=== PATIENT | female | born 2000 | race Caucasian/White ===

== ENCOUNTER 2022-02-10 02:00 | Emergency (ER) | payer OTHER ==
[~2022-02-10] VITALS: Ht 149.9 cm; Wt 55.8 kg
[2022-02-10 02:03] VITALS: BP 121/66
--- NOTE | 2022-02-10 03:12 | NUR ---
21 Y/O FEMALE BIBS, C/O ABD PAIN RADIATING TO BACK X1 DAY. PT STATES SHE HAS HAD CHILLS AND BURNING DURING URINATION. DENIES N/V/D; NO BLOOD IN URINE; SKIN IS PINK/WARM/DRY; AAOX4 WITH EVEN AND STEADY GAIT; LUNGS CLEAR BL; HR EVEN AND REGULAR; PT DENIES ANY FEVER, CP, SOB, OR COUGH AT THIS TIME; PATIENT STATES PAIN OF 5/10 AT THIS TIME; VSS denies hx, allergies meds: concerta, control
--- NOTE | 2022-02-10 03:44 | NUR ---
PT TAKEN TO ER BED 12
[2022-02-10] MEDS ORDERED: ONDANSETRON 4 MG/2 ML VIAL IVP ONE (03:45)
[2022-02-10] MEDS ORDERED: KETOROLAC 15 MG/ML VIAL IVP ONE (04:05)
[2022-02-10 04:11] LABS: APPEARANCE,URINE CLEAR (CLEAR); BILIRUBIN,URINE NEGATIVE (NEGATIVE); BLOOD, URINE 2+ (NEGATIVE); COLOR,URINE YELLOW (YELLOW); LEUKOCYTE ESTERASE ,URINE 2+ (NEGATIVE); NITRITE, URINE NEGATIVE (NEGATIVE); UGLUCOSE NEGATIVE (NEGATIVE)
[2022-02-10] MEDS ORDERED: cefTRIAXone 1,000 MG VIAL ONE (04:14)
[2022-02-10 04:17] LABS: BASOPHILS % (AUTO) 0.4 % (0.0-2.0); EOSINOPHILS # (AUTO) 0.2 K/uL (0-0.4); EOSINOPHILS % (AUTO) 1.2 % (0.0-4.0); HEMATOCRIT 38.4 % (36-48); LYMPHOCYTES # (AUTO) 2.1 K/uL (2.5-16.5); LYMPHOCYTES % (AUTO) 16.2 % (20.5-51.1); MEAN CORPUSCULAR HEMOGLOBIN 29 pg (27-31); MEAN CORPUSCULAR HGB CONC 34 g/dL (33-37); MEAN CORPUSCULAR VOLUME 86.1 fL (80-94); MONOCYTES # (AUTO) 0.6 K/uL (0.8-1.0); MONOCYTES % (AUTO) 4.9 % (1.7-9.3); NEUTROPHILS # (AUTO) 10.1 K/uL (1.8-7.7); NEUTROPHILS % (AUTO) 77.3 % (42.2-75.2); PLATELET COUNT (AUTO) 306 K/uL (140-450); RED BLOOD CELL COUNT(AUTO) 4.47 MIL/uL (4.20-5.40); RED CELL DISTRIBUTION WIDTH 12.6 % (11.6-13.7)
[2022-02-10] MEDS: NACL 0.9% 1,000 ML IV SCH ×2 (04:20→08:39)
--- NOTE | 2022-02-10 04:35 | NUR ---
20g IV established on L AC. Labs, blood cultures x2 drawn and sent to lab. NS 1L infusion started, per order. Ordered IV meds administered without event. IV ABX also started. Provided comfort needs.
[2022-02-10 04:37] LABS: RBC,URINE 0-5 /HPF (0-5); WBC,URINE 60-80 /HPF (0-5)
[2022-02-10 04:43] LABS: ANION GAP 11.4 (8-16); CARBON DIOXIDE 25.9 mmol/L (21-32); CREATININE 0.8 mg/dL (0.6-1.3); POTASSIUM 3.3 mmol/L (3.5-5.1); TOTAL BILIRUBIN 0.6 mg/dL (0.0-1.0)
--- NOTE | 2022-02-10 04:45 | NUR ---
Pt ambulated to and back from toilet. Void x1, per pt. Pt back in bed. NS and ABX continues.
--- NOTE | 2022-02-10 05:00 | NUR ---
Contrast Administration Questionnaire reviewed and consented by patient.
--- NOTE | 2022-02-10 05:27 | NUR ---
pt back from ct via w/c
[2022-02-10] MEDS ORDERED: CEPH-588 PO (06:08)
[2022-02-10] MEDS ORDERED: PHEN-1877 PO (06:08)
[2022-02-10] MEDS ORDERED: ONDA-188 SL (06:28)
--- NOTE | 2022-02-10 06:47 | NUR ---
Pt ambulated to and back from toilet via steady gait. Pt back in bed. Awaiting CT result. Pt has no needs
[2022-02-10] MEDS ORDERED: POTASSIUM CHLORIDE 10 MEQ TABER PO ONE (08:25)
--- NOTE | 2022-02-10 10:03 | NUR ---
Patient discharged with v/s stable. Written and verbal after care instructions given and explained. Patient alert, oriented and verbalized understanding of instructions. Ambulatory with steady gait. All questions addressed prior to discharge. ID band removed. IV DISCONTINUED AND REMOVED. Patient advised to follow up with PMD. Rx of KEFLEX, ZOFRAN AND PYRIDIUM given. Patient educated on indication of medication including possible reaction and side effects. Opportunity to ask questions provided and answered.
[2022-02-10 10:42] VITALS: BP 113/57
[2022-02-11] MEDS ORDERED: PHEN-1877 PO (13:57)
[2022-02-11] MEDS ORDERED: CEPH-588 PO (13:57)
[2022-02-11] MEDS ORDERED: ONDA-188 SL (13:57)
== END 2022-02-10 10:03 | disposition home or self-care (01) ==
LOC: MED 02:00
DX: N39.0 Urinary tract infection, site not specified (principal); R35.0 Frequency of micturition; R30.0 Dysuria; Z79.899 Other long term (current) drug therapy
CPT/HCPCS: 36415; 74177; 80053; 81001; 83690; 85025; 87040; 87086; 96361; 96365; 96375; 99285; J0696; J1885; J2405; J7030; Q9967